=== PATIENT | female | born 1930 | race Caucasian/White ===

== ENCOUNTER 2022-11-05 18:39 | Inpatient (IN) | payer MEDICARE ==
[~2022-11-05] VITALS: Ht 165.1 cm; Wt 52.2 kg
--- NOTE | 2022-11-05 18:52 | NUR ---
EDMAR Ortiz AC 22G, LABD DRAWN AND SENT
--- NOTE | 2022-11-05 19:00 | NUR ---
SHEA RA78 "Bystander called- saw her trip/fall running after dog +Right wrist deformity and chin Lac. NO LOC"
--- NOTE | 2022-11-05 19:16 | NUR ---
PT TAKEN TO CT
[2022-11-05] MEDS ORDERED: HYDROCODONE/APAP 5/325MG TABLET PO ONE (19:30)
[2022-11-05] MEDS ORDERED: TDAP [DIPH/PERTUSSIS/TET] 0.5 ML VIAL IM ONE ×2 (19:30→19:54)
--- NOTE | 2022-11-05 19:37 | NUR ---
SARAH FORD DAUGHTER [phone]
[2022-11-05] MEDS ORDERED: HYDROCODONE/APAP 5/325MG TABLET ONE (19:48)
[2022-11-05] MEDS ORDERED: LIDOCAINE 1%-EPI 1:100,000 50 ML VIAL IJ ONE (20:00)
--- NOTE | 2022-11-05 21:38 | NUR ---
DR. SCHWAB ON THE PHONE W/ ORTHO
[2022-11-05] MEDS ORDERED: LIDOCAINE HCL/MPF 1% 30 ML VIAL IJ ONE (21:49)
--- NOTE | 2022-11-05 21:50 | NUR ---
COVID ANTIGEN COLLECTED SENT TO LAB
[2022-11-05] MEDS ORDERED: LIDOCAINE 1% INJ 50 ML MDV IJ ONE (22:00)
[2022-11-05] MEDS ORDERED: MORPHINE SULFATE INJ 2 MG/ML DISP.SYRIN ONE (22:08)
[2022-11-05] MEDS ORDERED: MORPHINE SULFATE INJ 2 MG/ML DISP.SYRIN IV ONE (22:30)
[2022-11-05 23:11] LABS: BASOPHILS % (AUTO) 0.8 % (0.0-2.0); EOSINOPHILS % (AUTO) 5.4 % (0.0-6.0); HEMATOCRIT 40 % (33-45); HEMOGLOBIN 12.6 g/dL (11.5-14.8); LYMPHOCYTES # (AUTO) 1.6 K/uL (0.8-4.8); LYMPHOCYTES % (AUTO) 26.3 % (20.0-44.0); MEAN CORPUSCULAR HGB CONC 32 g/dl (31.0-36.0); MEAN CORPUSCULAR VOLUME 92 fL (82-100); MONOCYTES # (AUTO) 0.4 K/uL (0.1-1.30); MONOCYTES % (AUTO) 7.1 % (2.0-12.0); NEUTROPHILS # (AUTO) 3.6 K/uL (1.8-8.9); NEUTROPHILS % (AUTO) 60.4 % (43.0-81.0); PLATELET COUNT (AUTO) 219 K/uL (150-450); RED BLOOD CELL COUNT(AUTO) 4.35 MIL/uL (4.0-5.2)
[2022-11-05 23:17] LABS: CALCIUM, SERUM 9.2 mg/dL (8.5-10.1); CARBON DIOXIDE 27 mmol/L (21-32); CHLORIDE 109 mmol/L (98-107); CREATININE 1.2 mg/dL (0.6-1.3); GLUCOSE 115 mg/dL (74-106); POTASSIUM 4.1 mmol/L (3.5-5.1); SODIUM SERUM 144 mmol/L (136-145); UREA NITROGEN, BLOOD 22 mg/dL (7-18)
[2022-11-05 23:28] LABS: ALANINE AMINOTRANSFERASE 20 U/L (12-78); ALBUMIN 3.4 g/dL (3.4-5.0); ALKALINE PHOSPHATASE 74 U/L (46-116); ASPARTATE AMINOTRANSFERASE 16 U/L (15-37); BILIRUBIN,TOTAL 0.2 mg/dL (0.2-1.0); TOTAL PROTEIN, SERUM 6.8 g/dL (6.4-8.2)
--- NOTE | 2022-11-06 00:27 | NUR ---
REPORT GIVEN TO IBRAHIMA LOPEZ, CAROLE
--- NOTE | 2022-11-06 00:28 | NUR ---
PT TAKEN TO CT
[2022-11-06] MEDS ORDERED: LEVETIRACETAM (500MG) 500 MG in IV NS 0.9% 100 ML IV SCH ×2 (00:30→12:30)
[2022-11-06] MEDS ORDERED: LEVETIRACETAM (500MG) 1,000 MG in IV NS 0.9% 100 ML IV SCH (00:30)
[2022-11-06] MEDS ORDERED: HYDROCODONE/APAP 5/325MG TABLET PO PRN (00:30)
--- NOTE | 2022-11-06 00:55 | NUR ---
PT MOVED TO 116-1 VIA ACLS PROTOCOL
[2022-11-06 00:56] VITALS: BP 139/72
--- NOTE | 2022-11-06 00:56 | NUR ---
RN ADMITTING NOTE Received patient from ER liliana pandey accompanied by Ebenezer LOPEZ and EMT Jf via ACLS protocol, pt AAO x 2-3, in no acute distress, saturation at 98% on room air, SR on the monitor, HR is 79. IV line at LFA 22g patent and flushing well, saline locked. Comprehensive assessment done, noted lacerated wound at R chin with stitches intact, no swelling or bleeding noted. Patient on R arm sling s/p manual reduction at ER. No complaints of pain at this time. Safety and seziure precuations implemented, bed is locked and at lowest position, side rails padded, bed alarm is on, HOB elevated, call light within reach of patient. Will continue to monitor and carry out MD orders.
[2022-11-06] MEDS ORDERED: LEVETIRACETAM (500MG) 1,000 MG in IV NS 0.9% 100 ML IV ONE (01:00)
--- NOTE | 2022-11-06 01:00 | NUR ---
Telephone call from pharmacy to verify order for Keppra as there are two existing order: [address] mg va [address] Olivo, Keppra 1000 mg now then 500 mg Q12. [facility] of [facility] made aware.
--- NOTE | 2022-11-06 01:30 | NUR ---
RN NOTE Nat dunn, supervisor vine fruit farming Magdaleno LOPEZ notified. Order faxed to [place] [facility].
[2022-11-06] MEDS ORDERED: LEVETIRACETAM (500MG) 500 MG/5 ML VIAL IV ONE (02:32)
[2022-11-06 04:00] VITALS: BP 137/81
[2022-11-06] MEDS: BLOOD SUGAR DIAGNOSTIC 1 EACH STRIP IN SCH ×7 (05:15→21:56)
[2022-11-06 07:43] LABS: ALBUMIN 3.2 g/dL (3.4-5.0); BILIRUBIN,TOTAL 0.3 mg/dL (0.2-1.0); CALCIUM, SERUM 9.1 mg/dL (8.5-10.1); POTASSIUM 4.5 mmol/L (3.5-5.1); TOTAL PROTEIN, SERUM 6.8 g/dL (6.4-8.2)
[2022-11-06 07:53] LABS: THYROID STIMULATING HORMONE 0.282 uIU/mL (0.358-3.74)
[2022-11-06 08:00] VITALS: BP 139/68
[2022-11-06] MEDS: PANTOPRAZOLE 40 MG VIAL IV SCH (08:14)
[2022-11-06] MEDS: LEVETIRACETAM (500MG) 500 MG in IV NS 0.9% 100 ML IV SCH ×2 (08:14→21:06)
--- NOTE | 2022-11-06 09:16 | NUR ---
SW Consult: SW consult was requested for a fall. SW attempted to assess the pt. Pt appeared to be alert and oriented x1 to self only. Pt was not making any sense at this time. Per documents, pt was chasing her dog and fell and then [facility] ([phone]) called 911. Pt is unsure where she resides. She was unable to have a proper conversation due to her confusion at this time. SW contacted [facility] to verify if pt is a pt there, however, SW spoke with admissions they stated that it is not there pt. SW contacted pt's daughter Sebastien ([phone]) to gather information. She reported that pt lives at [address] [place] [address]; ([phone]). Daughter stated that pt was walking her dog and the dog pulled her and she fell. Daughter stated that she helps pt at home and she has a company visiting angels visiting pt. SW will make a APS report for wellness check at home. DC Plan: Pt will either return back home [address] [place] [address]; ([phone]) or pt will require a SNF.
[2022-11-06] MEDS ORDERED: LEVO75TA7 PO (09:28)
[2022-11-06] MEDS ORDERED: ESCI5TAB PO (09:28)
--- NOTE | 2022-11-06 09:40 | NUR ---
APS: ISSA filed for APS report through [facility] for wellness check intake #[id number].
--- NOTE | 2022-11-06 09:43 | NUR ---
WOUND CARE CONSULT: PT PRESENTS WITH DISCOLORATION TO FACE AND SUTURES TO CHIN, PRESENT ON ADMISSION. RECOMMENDATIONS MADE FOR SKIN PROTECTION. DISCUSSED WITH NURSING STAFF. PT USING PUREWICK FOR URINARY INCONTINENCE. MD IN AGREEMENT WITH PLAN OF CARE.
[2022-11-06] MEDS: Z GUARD REMEDY 4 OZ OINT TP SCH (10:00)
[2022-11-06] MEDS ORDERED: Z GUARD REMEDY 4 OZ OINT TP PRN (10:00)
--- NOTE | 2022-11-06 11:30 | NUR ---
PATIENT IS CONFUSED AND REMOVED HER CAST ON HER RIGHT HAND, WHICH HAS A FRACTURE ON HER RIGHT WRIST. TOO MANY ATTEMPT AND PRECAUTIONS ATTEMPTED BUT SHE WAS ABLE TO REMOVE IT AGAIN. SO I APPLIED A SOFT RESTRAIN ONLY ON HER LEFT WRIST FOR HER SAFETY.
--- NOTE | 2022-11-06 11:33 | NUR ---
BIOLOGY FACULTY MEMBER NOTE PATIENT TRYING TO REMOVE ALL LINENS AND SLING AND SPLING FROM RT ARM DESPITE EXPLANATION STILL DO IT , PER LUIS ANGEL AGEE TO PLACE LT MITTEN , WILL INFORM DAUGHTER
[2022-11-06] MEDS: MORPHINE SULFATE INJ 2 MG/ML DISP.SYRIN IV PRN ×2 (11:39→20:20)
[2022-11-06 12:00] VITALS: BP 132/107
--- NOTE | 2022-11-06 14:30 | NUR ---
LAC INFILTRATED AND REMOVED ICE PACK APPLIED LEFT ARM ELEVATED. A NEW IV SITE ONITIATE DON PATIENT'S LEFT WRIST AREA G 20 FOR TKO AND IVP.
[2022-11-06 16:00] VITALS: BP 141/69
--- NOTE | 2022-11-06 16:30 | NUR ---
PATIENT PASSED THE SWALLOW EVAL WITH SPEECH THERAPIST SO PATIENT IS NOT NPO ANYMORE, THE ORDERED DIET IS PUREED DIET.
--- NOTE | 2022-11-06 19:30 | NUR ---
RN CAROLE OPENING NOTE PATIENT IN BED, SLEEPING. PATIENT ON RA, NO SINGS OF RESPIRATORY DISTRESS NOTED. NSR ON THE MONITOR. IV LINE AT LEFT WRIST 20G, PATENT, FLUSHING WELL. NOTED LACERATION WOUND AT RIGHT CHIN WITH STICHES INTACT, NO SWELLING OR BLEEDING NOTED. PATIENT HAS RIGHT WRIST SOFT RESTRAIN. PATIENT REMOVED RIGHT ARM SLING, THE RIGHT ARM WAS PLACED ON THE PILLOW. NO SINGS OF DISTRESS OR MANIFESTATIONS OF PAIN. SAFETY AND SEIZURE PRECAUTIONS IMPLEMENTED, BED LOCKED IN AND IN THE LOWEST POSITION, SIDE RAILS X2 UP AND PADDED. HOB ELEVATED AT 30 DEGREES. BED ALARM ON, CALL LIGHT WITHIN REACH. WILL CONTINUE TO MONITOR. Addendum: 11/07/22 at 0708 by GOKUL LANTIGUA RN PATIENT HAS LEFT WRIST SOFT RESTRAIN.
[2022-11-06 20:00] VITALS: BP 138/50
[2022-11-06] MEDS: hydrALAZINE HCL IV 20 MG VIAL IV PRN (23:50)
[2022-11-07] VITALS: BP 152/70
[2022-11-07 01:46] LABS: BILIRUBIN,URINE NEGATIVE (NEGATIVE); COLOR,URINE YELLOW (YELLOW); LEUKOCYTE ESTERASE ,URINE NEGATIVE (NEGATIVE); NITRITE, URINE NEGATIVE (NEGATIVE); PH,URINE 6.5 (5.0-8.0); PROTEIN,URINE NEGATIVE (NEGATIVE); UGLUCOSE NEGATIVE (NEGATIVE); UROBILINOGEN,URINE 0.2 EU/dL (0.2)
[2022-11-07 02:41] LABS: BACTERIA,URINE Rare /HPF (None Seen); SQUAMOUS EPITHELIAL CELL,UR Rare /HPF (None Seen); WBC,URINE 0-2 /HPF (0-3)
[2022-11-07 02:42] LABS: CALCIUM OXALATE CRYSTALS,UR Few /HPF (None Seen); URIC ACID CRYSTALS,URINE Few /HPF (None Seen)
[2022-11-07 04:00] VITALS: BP 135/72
[2022-11-07 06:52] LABS: ALBUMIN 3.1 g/dL (3.4-5.0); BILIRUBIN,TOTAL 0.6 mg/dL (0.2-1.0); CALCIUM, SERUM 9.1 mg/dL (8.5-10.1); CREATININE 0.7 mg/dL (0.6-1.3); TOTAL PROTEIN, SERUM 6.9 g/dL (6.4-8.2)
--- NOTE | 2022-11-07 06:55 | NUR ---
RN CAROLE CLOSING NOTE PATIENT IN BED, SLEEPING. PATIENT ON RA, SATURATION 95%, NO SIGNS OF RESPIRATORY DISTRESS NOTED. NSR ON THE MONITOR, HR 77. IV LINE AT LEFT WRIST 20G, PATENT, FLUSHING WELL. NOTED LACERATION WOUND AT RIGHT CHIN WITH STICHES INTACT, NO SWELLING OR BLEEDING NOTED. PATIENT HAS LEFT WRIST SOFT RESTRAIN. NO SINGS OF DISTRESS OR MANIFESTATIONS OF PAIN. SAFETY AND SEIZURE PRECAUTIONS IMPLEMENTED, BED LOCKED IN AND IN THE LOWEST POSITION, SIDE RAILS X2 UP AND PADDED. HOB ELEVATED AT 30 DEGREES. BED ALARM ON, CALL LIGHT WITHIN REACH. WILL BE ENDORSED TO THE NEXT SHIFT FOR LILLY.
[2022-11-07] MEDS: BLOOD SUGAR DIAGNOSTIC 1 EACH STRIP IN SCH ×4 (07:48→21:09)
[2022-11-07 08:00] VITALS: BP 139/78
[2022-11-07] MEDS: PANTOPRAZOLE 40 MG VIAL IV SCH (08:14)
[2022-11-07] MEDS: LEVETIRACETAM (500MG) 500 MG in IV NS 0.9% 100 ML IV SCH ×2 (08:14→21:18)
[2022-11-07] MEDS: Z GUARD REMEDY 4 OZ OINT TP SCH (08:15)
[2022-11-07] MEDS: hydrALAZINE HCL IV 20 MG VIAL IV PRN (11:57)
[2022-11-07 12:00] VITALS: BP 155/69
[2022-11-07] MEDS: NEOMY SULF/BACITRAC ZN/POLY 15 GM TUBE TP SCH (15:00)
--- NOTE | 2022-11-07 15:00 | NUR ---
PATIENT WAS TRYING TO GET OUT OF THE BED ALMOST HANGING HER LEGS FROM THE BED. NO INJURIES NOTES, PATIENT WAS ABLE TO MOVE HER LEFT ARM AND BLE EXTREMITIES. RIGHT WRIST FRACTURE ALREADY IN SPLINT. DR. TOUSSAINT NOTIFIED AND SHE SAID NO X RAY NEEDED ONCE PATIENT MOVES ALL HER EXT. ANTONETTE THE CHARGE NURSE REQUESTED A SITTER FOR PATCH FINISHER BUT NO ONE IS AVAILABLE. SO I AM GOING TO HAVE THE PATCH FINISHER NURSE TO HAVE HER EYES ON HER AND SIT NEXT TO PATIENT'S ROOM.
[2022-11-07] MEDS: MORPHINE SULFATE INJ 2 MG/ML DISP.SYRIN IV PRN (15:59)
[2022-11-07 16:00] VITALS: BP 146/63
--- NOTE | 2022-11-07 19:30 | NUR ---
NUTS AND BOLTS ASSEMBLER OPENING NOTE PATIENT RECEIVED IN BED AWAKE, A/O 1-2, NO SOB NO DISTRESS NOTED, DENIES PAIN AT THUIS TIME, PATIENT SR HR 83, PATIENT HAS SPLINT ON RIGHT ARM, HAS SOFT RESTRAINT ON LEFT WRIST, PATIENT IS ON PURE WICK FLOWING CLEAR YELLOW URINE OUT PUT, IV SITE ON LEFT WRIST 20 GAUGE, IV SITE INTACT AND PATENT, ALL SAFETY MEASURES IN PLACE, CALL LIGHT WITHIN REACH, WILL CONTINUE PLAN OF CARE
[2022-11-07 20:35] VITALS: BP 140/68
[2022-11-08 01:08] VITALS: BP 156/77
[2022-11-08] MEDS: hydrALAZINE HCL IV 20 MG VIAL IV PRN ×2 (03:46→08:11)
[2022-11-08] MEDS: MORPHINE SULFATE INJ 2 MG/ML DISP.SYRIN IV PRN (03:47)
[2022-11-08 05:12] VITALS: BP 140/67
--- NOTE | 2022-11-08 06:30 | NUR ---
TRANSITION TEACHER CLOSING NOTE PATIENT IN BED, SLEEPING. PATIENT ON RA, SATURATION 97%, NO SIGNS OF RESPIRATORY DISTRESS NOTED. NSR ON THE MONITOR, HR 73. IV LINE AT LEFT WRIST 20G, PATENT, FLUSHING WELL. NO SWELLING OR BLEEDING NOTED. PATIENT HAS LEFT WRIST SOFT RESTRAIN. NO S/S OF DISTRESS OR PAIN NOTED. SAFETY AND SEIZURE PRECAUTIONS IMPLEMENTED, BED LOCKED IN AND IN THE LOWEST POSITION, SIDE RAILS X2 UP AND PADDED. HOB ELEVATED AT 30 DEGREES. BED ALARM ON, CALL LIGHT WITHIN REACH. WILL BE ENDORSED TO AM SHIFT FOR LILLY.
[2022-11-08 06:47] LABS: ALBUMIN 3.1 g/dL (3.4-5.0); BILIRUBIN,TOTAL 0.6 mg/dL (0.2-1.0); CALCIUM, SERUM 9.4 mg/dL (8.5-10.1); CREATININE 0.8 mg/dL (0.6-1.3); POTASSIUM 3.6 mmol/L (3.5-5.1); TOTAL PROTEIN, SERUM 6.9 g/dL (6.4-8.2)
--- NOTE | 2022-11-08 07:31 | NUR ---
RN CAROLE NOTE PATIENT IN BED, SLEEPING.BUT AROUSABLE TO TACTIL AND VERBAL STIMULI PATIENT ON RA, NO SIGNS OF RESPIRATORY DISTRESS NOTED AT THIS TIME,NSR ON THE MONITOR, HR 78. IV LINE AT LEFT WRIST 20G, PATENT, FLUSHING WELL. NOTED LACERATION WOUND AT RIGHT CHIN WITH STITCHES INTACT, LT KNEE BRUISE NO SWELLING OR BLEEDING NOTED. PATIENT HAS LEFT WRIST SOFT RESTRAIN. NO SINGS OF DISTRESS OR MANIFESTATIONS OF PAIN. SAFETY AND SEIZURE PRECAUTIONS IMPLEMENTED, BED LOCKED IN AND IN THE LOWEST POSITION, SIDE RAILS X2 UP AND PADDED. BED ALARM ON, CALL LIGHT WITHIN REACH. WILL CONT TO MONITOR
[2022-11-08] MEDS: BLOOD SUGAR DIAGNOSTIC 1 EACH STRIP IN SCH ×4 (07:34→21:20)
[2022-11-08 08:00] VITALS: BP 164/63
[2022-11-08] MEDS: LEVETIRACETAM (500MG) 500 MG in IV NS 0.9% 100 ML IV SCH ×2 (08:00→20:32)
[2022-11-08] MEDS: PANTOPRAZOLE 40 MG/PACK PACK PO SCH (08:16)
[2022-11-08] MEDS: NEOMY SULF/BACITRAC ZN/POLY 15 GM TUBE TP SCH (08:16)
[2022-11-08] MEDS: Z GUARD REMEDY 4 OZ OINT TP SCH (08:17)
--- NOTE | 2022-11-08 08:18 | NUR ---
CONDUCTOR/ENGINEER NOTE NEW HL ON LT FA MARK 24 INSERTED WITH GOOD BLOOD RETURN AND BP 164/99 HYDRALAZINE 5 MG IVP GIVEN ORDERED
--- NOTE | 2022-11-08 09:53 | NUR ---
CAROLE RN NOTE RECHECK BP AFTER HYDRALAZINE BP NOW 132/62, WILL MONITOR
--- NOTE | 2022-11-08 10:46 | NUR ---
CONFERENCE ORGANIZER NOTE PER HAM LOPEZ HORTICULTURE SUPERINTENDENT NEUROLOGY OK TO D\C TO DO [facility] , PATIENT IS DONT HAVE STROKE , WILL F\U
--- NOTE | 2022-11-08 11:29 | NUR ---
JOEY LOPEZ NOTE DAUGHTER AT BEDSIDE ,UPDATED PATIENT CONDITION Addendum: 11/08/22 at 1233 by GALO PAK RN PATIENT HEARING AID TAKEN BY DAUGHTER
[2022-11-08 12:00] VITALS: BP 140/62
[2022-11-08] MEDS: ENSURE ENLIVE 237 ML LIQUID (VANILLA) PO SCH ×2 (12:11→16:19)
--- NOTE | 2022-11-08 15:57 | NUR ---
bernardo rn note tried to give more apple sauce or pudding, ate just a little, mostly strongly refused, will cont to encourage to eat
[2022-11-08 16:00] VITALS: BP 140/68
[2022-11-08] MEDS ORDERED: LEVE500T9 PO (16:00)
--- NOTE | 2022-11-08 17:09 | NUR ---
bernardo Clifton rn senior applications engineer notified that benitez has poor appetite and blood sugar running 74-84 mg\dl stated that will start ivf with d5 ,will f\u Addendum: 11/08/22 at 1713 by GALO PAK RN patient become more relax and not trying to remove all lines ,soft restrain removed Addendum: 11/08/22 at 1715 by GALO PAK RN per [place] np [facility] , order carried out
[2022-11-08] MEDS: IV D5/ 0.9% NACL 1,000 ML IV PRN (17:36)
--- NOTE | 2022-11-08 18:20 | NUR ---
telegraph service clerk note patient in bed , resting comfortably ,started on ivf as ordered ,on tele monitor sr hr 78, on ra, no sob noted at this time, with puree week with yellow color urine noted, ate 10% of dinner , keep hob elevated as tolerated , rt arm with splint as ordered , able to move fingers, skin warm and dry, keep supported on pillow, no soft restrain at this time ,patient calm and cooperative, lt hf gianna 24 intact and flushed well, bed in lowest and locked position , will cont to monitor closely, with padded side rails for seizure precaution
--- NOTE | 2022-11-08 19:30 | NUR ---
PROPERTY UTILIZATION OFFICER OPENING NOTES - RECEIVED PATIENT SLEEPING, EASY TO AROUSE. HOB IN SEMI-LENTZ'S. A/O X2. BREATHING EVEN AND NON-LABORED ON ROOM AIR. HAS RIGHT ARM SPLINT WITH C/O MILD PAIN. ON TELE MONITOR READING SINUS RHYTHM AT 78 BPM. HAS LEFT FOREARM IV ACCESS #24G WITH D5NS RUNNING AT 60 ML/HR. NO S/S OF INFILTRATION NOTED. HAS PUREWICK CONNECTED TO CONTINUOUS SUCTION. SAFETY PRECAUTIONS IN PLACE: BED LOCKED AND IN LOW POSITION, SIDE RAILS UP X2, CALL LIGHT WITHIN REACH. WILL CONTINUE PLAN OF CARE.
[2022-11-08 20:00] VITALS: BP_SYST 139; BP_SYST 144; BP_DIAS 101; BP_DIAS 67
--- NOTE | 2022-11-08 21:21 | NUR ---
ATTEMPTED TO CHECK BLOOD SUGAR X3, PATIENT KEPT PULLING HER ARM. EXPLAINED RISKS AND BENEFITS, STILL REFUSED AND BECAME AGITATED.
[2022-11-09] VITALS: BP 134/70
[2022-11-09 04:00] VITALS: BP 129/59
--- NOTE | 2022-11-09 07:00 | NUR ---
PREPRESS SUPERVISOR CLOSING NOTES - PATIENT RESTING IN BED, ABLE TO VERBALIZE NEEDS. FREQUENT RE-ORIENTATION NEEDED. HOB KEPT ELEVATED. SATURATING WELL ON ROOM AIR. AFEBRILE. TELE MONITOR SHOWS SINUS RHYTHM AT 70 BPM. LEFT FOREARM IV ACCESS INTACT, PATENT AND FLUSHING. RIGHT ARM SPLINT KEPT IN PLACE. CLEAR DARK YELLOW URINE OUTPUT NOTED. ALL DUE MEDS GIVEN AND NEEDS ATTENDED. ENCOURAGED P.O. INTAKE. STRICT ASPIRATION AND SEIZURE PRECAUTIONS OBSERVED. SAFETY MEASURES MAINTAINED. WILL ENDORSE TO AM NURSE FOR LILLY.
--- NOTE | 2022-11-09 07:36 | NUR ---
INSPECTING ENGINEER OPENING NOTE Patient in bed, awake. A/O x 2 with periods of confusion. On room air, no SOB or s/s of distress noted. IV access on LFA #24 infusing D5NS at 60 ml/hr. On external monitoring showing SR. Purewick in place. Safety precautions in place: bed in low, locked position; siderails up x 2; call light within reach. Will continue to monitor.
[2022-11-09 08:00] VITALS: BP 141/56
[2022-11-09] MEDS: LEVETIRACETAM (500MG) 500 MG in IV NS 0.9% 100 ML IV SCH (08:21)
[2022-11-09] MEDS: ENSURE ENLIVE 237 ML LIQUID (VANILLA) PO SCH ×2 (08:21→11:40)
[2022-11-09] MEDS: BLOOD SUGAR DIAGNOSTIC 1 EACH STRIP IN SCH ×2 (08:21→11:40)
[2022-11-09] MEDS: PANTOPRAZOLE 40 MG/PACK PACK PO SCH (08:22)
[2022-11-09] MEDS: NEOMY SULF/BACITRAC ZN/POLY 15 GM TUBE TP SCH (08:22)
[2022-11-09] MEDS: Z GUARD REMEDY 4 OZ OINT TP SCH (08:22)
[2022-11-09] MEDS: hydrALAZINE HCL IV 20 MG VIAL IV PRN (09:48)
--- NOTE | 2022-11-09 09:48 | NUR ---
RN NOTE Patient's BP was 141/56, order was to keep SBP below 140, PRN Hydralazine 5 mg IV given. Will continue to monitor.
--- NOTE | 2022-11-09 11:00 | NUR ---
RN NOTE BP rechecked 125/45.
[2022-11-09] MEDS ORDERED: LACT-246 PO (11:13)
[2022-11-09 12:00] VITALS: BP 125/45
[2022-11-09] MEDS: IV D5/ 0.9% NACL 1,000 ML IV PRN (14:11)
[2022-11-09 16:00] VITALS: BP 114/52
--- NOTE | 2022-11-09 17:05 | NUR ---
DISCHARGE NOTE Received order for discharge. Patient is A/O x 2, able to make needs known. Stable on room air, no SOB or s/s of distress noted. Report given to [facility] [place]. All belongings accounted for. Patient denies any pain or discomfort at this time. Right arm splint in place with sling. IV access removed, catheter tip intact. Pressure dressings applied. Patient left in stable condition with 2 order processing manager.
[2022-11-09] MEDS ORDERED: LEVETIRACETAM (250 MG) 250 MG TABLET PO SCH (21:00)
[2022-11-27] MEDS ORDERED: AMIN30LI2 PO (13:34)
[2022-11-27] MEDS ORDERED: MULT-447 PO (13:34)
[2022-11-27] MEDS ORDERED: LEVE500T20 PO (13:34)
[2022-11-27] MEDS ORDERED: DOCU-141 PO (13:34)
[2022-11-27] MEDS ORDERED: CRAN425C6 PO (13:34)
[2022-11-27] MEDS ORDERED: BISA10SU61 RC (13:34)
[2022-11-27] MEDS ORDERED: ACET-868 PO (13:34)
[2022-11-27] MEDS ORDERED: LEVO75TA7 PO (13:34)
[2022-11-27] MEDS ORDERED: ALLA266C2 TP (13:34)
[2022-11-27] MEDS ORDERED: MEGE400O5 PO (13:34)
[2022-11-27] MEDS ORDERED: MAGN400O6 PO (13:34)
== END 2022-11-09 17:01 | DRG 83 ==
LOC: EDBD → ER 19:14 → TELE-TD 11-06 00:17 → TELE1 11-06 01:15 → TELE-TD 11-06 14:56 → TELE1 11-08 17:11
PROVIDERS: ADMIT Nurse Practitioner Acute Care; ATTEND Nurse Practitioner Acute Care
PROC: 0HQ1XZZ Repair Face Skin, External Approach (ICD-10-PCS; principal; 2022-11-06)
DX: S06.6XAA Traumatic subarachnoid hemorrhage with loss of consciousness status unknown, initial encounter (principal); S52.501A Unspecified fracture of the lower end of right radius, initial encounter for closed fracture; S01.81XA Laceration without foreign body of other part of head, initial encounter; W01.0XXA Fall on same level from slipping, tripping and stumbling without subsequent striking against object, initial encounter; Y93.02 Activity, running; Y92.9 Unspecified place or not applicable; J44.9 Chronic obstructive pulmonary disease, unspecified; I10 Essential (primary) hypertension
CPT/HCPCS: 36415; 70450-TC; 70486-TC; 71045-TC; 72125-TC; 73110; 73564-TC; 80053-TC; 81001; 82962-TC; 84443-TC; 85025-TC; 85730-TC; 87081-TC; 90715; 92507-TC; 92521; 92526; 92611-TC; 97110-TC; 97112-TC; 97530-TC; 97535-TC; A4223; C9113; C9803; G0378; J0360; J1953; J2270; J3490; J7030; J7042; J7050